=== PATIENT | male | born 1995 | race Caucasian/White ===

== ENCOUNTER 2019-05-30 13:18 | Emergency (ER) | payer OTHER ==
[~2019-05-30] VITALS: Ht 182.9 cm; Wt 100.0 kg
[2019-05-30 13:30] VITALS: Ht 182.9 cm; Wt 100.0 kg
[2019-05-30] MEDS ORDERED: morphine 2 MG INJ IV STA (14:55)
[2019-05-30] MEDS ORDERED: SOD CHLORIDE 0.9% 1,000 ML IV STA (14:55)
[2019-05-30] MEDS ORDERED: ONDANSETRON 4 MG INJ IV STA (14:55)
[2019-05-30] MEDS ORDERED: FAMOTIDINE 20 MG INJ IV STA (14:55)
[2019-05-30] MEDS ORDERED: CIPROFLOXACIN 500 MG TAB PO STA (14:55)
--- NOTE | 2019-05-30 14:58 | ERD ---
ER Documentation Chief Complaint Chief Complaint AP WITH DIARRHEA X 1 DAY HPI 23-year-old male, previously healthy, presents the emergency department, brought in by mother, complaining of 1 day with abdominal pain that started after eating [place] food. The pain is colicky, intermittent, 6/10, associated with nausea and greenish, watery diarrhea, approximately 6 episodes during the last 24 hours. The patient denies fever or chills, no history of previous episodes. The patient has been taking Tylenol with mild improvement of symptoms. ROS All systems reviewed and are negative except as per history of present illness. Medications Home Meds Active Scripts Acetaminophen* (Tylenol*) 325 Mg Tablet, 2 TAB PO Q6 PRN for PAIN AND OR ELEVATED TEMP, #20 TAB Prov:JUDIE LOUIS MD 05/30/19 Ranitidine Hcl* (Zantac*) 150 Mg Tablet, 150 MG PO BID PRN for EPIGASTRIC PAIN for 5 Days, #10 TAB Prov:JUDIE LOUIS MD 05/30/19 Ciprofloxacin Hcl* (Ciprofloxacin Hcl*) 250 Mg Tablet, 250 MG PO BID for 5 Days, #10 TAB Prov:JUDIE LOUIS MD 05/30/19 Allergies Allergies: Coded Allergies: No Known Allergy (Unverified , 05/30/19) PMhx/Soc Medical and Surgical Hx: pt denies Medical Hx History of Surgery: No Hx Alcohol Use: No Hx Substance Use: No Smoking Status: Current every day smoker FmHx Family History: No diabetes, No coronary disease Physical Exam Vitals Vital Signs Date Temp Pulse Resp B/P (MAP) Pulse Ox O2 O2 Flow FiO2 Time Delivery Rate 05/30/19 98.9 89 18 137/70 98 Room Air 16:57 (92) 05/30/19 97.4 99 18 147/89 99 13:30 (108) Physical Exam Patient alert, oriented, vital signs stable. HEAD: Normocephalic, atraumatic. EYES: PERRLA, EOMI, Sclera and conjunctiva appear normal. NOSE: Clear and patent nostrils. EARS: Canals clear, tympanic membranes WNL. MOUTH: normal lips and tongue, no oral lesions. THROAT: Normal oropharynx, no tonsillar exudates. NECK: Supple, No lymphadenopathy. Full ROM without pain or tenderness. HEART: RRR, no rubs, murmurs, clicks or gallops. LUNGS: Clear to auscultation. ABDOMEN: Soft, minimal tenderness with deep palpation without masses or hepatosplenomegaly. EXTREMITIES: No edema bilaterally. BACK: Full ROM, no deformity, normal back exam NEURO: Cranial nerves grossly intact, no motor or sensory deficit SKIN: No rashes, no petechia. Result Diagram: 05/30/19 1512 05/30/19 1511 Results 24 hrs Laboratory Tests Test 05/30/19 15:11 05/30/19 15:12 Sodium Level 141 mmol/L Potassium Level 3.6 mmol/L Chloride Level 101 mmol/L Carbon Dioxide Level 28 mmol/L Anion Gap 12 Blood Urea Nitrogen 7 mg/dl Creatinine 1.02 mg/dl Est Glomerular Filtrat Rate mL/min > 60 mL/min Glucose Level 112 mg/dl Calcium Level 10.3 mg/dl Total Bilirubin 0.7 mg/dl Direct Bilirubin 0.00 mg/dl Indirect Bilirubin 0.7 mg/dl Aspartate Amino Transf (AST/SGOT) 38 IU/L Alanine Aminotransferase (ALT/SGPT) 30 IU/L Alkaline Phosphatase 93 IU/L Total Protein 10.0 g/dl Albumin 5.0 g/dl Globulin 5.00 g/dl Albumin/Globulin Ratio 1.00 Lipase 56 U/L White Blood Count 20.5 10^3/ul Red Blood Count 5.92 10^6/ul Hemoglobin 17.5 g/dl Hematocrit 51.2 % Mean Corpuscular Volume 86.5 fl Mean Corpuscular Hemoglobin 29.6 pg Mean Corpuscular Hemoglobin Concent 34.2 g/dl Red Cell Distribution Width 12.3 % Platelet Count 228 10^3/UL Mean Platelet Volume 11.5 fl Immature Granulocytes % 0.600 % Neutrophils % 81.0 % Lymphocytes % 9.9 % Monocytes % 8.1 % Eosinophils % 0.1 % Basophils % 0.3 % Nucleated Red Blood Cells % 0.0 /100WBC Immature Granulocytes # 0.120 10^3/ul Neutrophils # 16.6 10^3/ul Lymphocytes # 2.0 10^3/ul Monocytes # 1.7 10^3/ul Eosinophils # 0.0 10^3/ul Basophils # 0.1 10^3/ul Nucleated Red Blood Cells # 0.0 10^3/ul Urine Color JG Urine Clarity SLIGHTLY CLOUDY Urine pH 6.0 Urine Specific [place] 1.031 Urine Ketones TRACE mg/dL Urine Nitrite NEGATIVE mg/dL Urine Bilirubin NEGATIVE mg/dL Urine Urobilinogen NEGATIVE mg/dL Urine Leukocyte Esterase NEGATIVE Ferny/ul Urine Microscopic RBC 3 /HPF Urine Microscopic WBC 6 /HPF Urine Mucus MANY /HPF Urine Hemoglobin NEGATIVE mg/dL Urine Glucose NEGATIVE mg/dL Urine Total Protein 2+ mg/dl Current Medications Medications Dose Sig/Shaan Start Time Status Last (Trade) Ordered Route PRN Stop Time Admin Dose Reason Admin Sodium 1,000 ml @ Q1H STAT 05/30/19 DC 05/30/19 Chloride 1,000 mls/hr IV 14:55 15:22 05/30/19 15:54 Morphine 2 mg ONCE STAT 05/30/19 DC 05/30/19 Sulfate IV 14:55 15:20 (morphine) 05/30/19 15:07 Ondansetron 4 mg ONCE STAT 05/30/19 DC 05/30/19 HCl (Zofran IV 14:55 15:20 Inj) 05/30/19 15:07 Famotidine 20 mg ONCE STAT 05/30/19 DC 05/30/19 (Pepcid Iv) IV 14:55 15:20 05/30/19 15:07 500 mg ONCE STAT 05/30/19 DC 05/30/19 Ciprofloxacin PO 14:55 16:04 (Cipro) 05/30/19 15:07 Patient: LINDSAY RODRIGUEZ : 1995 Age: 23 Sex: M MR #: [id number] DOS: 05/30/19 1455 Ordering MD: JUDIE LOUIS MD Location: [facility] Room/Bed: PROCEDURE: CT Abdomen and Pelvis without intravenous contrast. CLINICAL INDICATION: Abdominal Pain . TECHNIQUE: CT scan of the abdomen and pelvis without intravenous contrast was performed on a multi-detector high-resolution CT scanner. Coronal and sagittal reformatted images were obtained from the axial source images. DICOM images are available. CTDIvol 21.85 mGy, and DLP 1504.98 mGy.cm. One or more of the following dose reduction techniques were used: - Automated exposure control. - Adjustment of the mA and/or kV according to patient size. - Use of iterative reconstruction technique. COMPARISON: None available FINDINGS: In the absence of intravenous contrast, the study constitutes a limited assess ment of the solid organs, bowel and vessels. Lower thorax: Normal. Liver: Normal. Biliary: Gallbladder is normal. No intrahepatic or extrahepatic biliary dilatation. Pancreas: Normal. Spleen: Normal. Adrenal Glands: Normal. Urinary: Normal. Gastrointestinal: Stomach is unremarkable. There is low density mucosa of the ileal small bowel, cecum, ascending colon, and transverse colon. No evidence of appendicitis. No bowel wall thickening or acute inflammatory changes. No evidenc e of bowel obstruction. Lymph nodes: No enlarged abdominal or pelvic lymph nodes. Small mesenteric lymph nodes are noted and may be reactive. Vascular: Normal. Peritoneum/mesentery: No free fluid or free air. Reproductive organs: Normal. Musculoskeletal: No suspicious osseous lesions. IMPRESSION: No CT evidence of mass, lymphadenopathy, or acute inflammatory process. Low density mucosa of the ileal small bowel, ascending colon, and transverse colon may be sequela of chronic inflammatory changes. Correlate for inflammatory bowel disease. Procedures/MDM Vital signs stable. Differential diagnosis include but not limited to: UTI, colitis, gastroenteritis, kidney stones, irritable bowel syndrome, inflammatory bowel syndrome, malabsorption syndrome, cholelithiasis, food intolerance, medication side effect, pancreatitis, diverticulitis, bowel obstruction. Physical examination and clinical presentation consistent most likely with infectious gastroenteritis. During the ED course the patient remained stable, no new complaints, multiple examinations done at bedside, abdomen soft without peritoneal signs. The patient received treatment with IV fluids and IV medications presenting overall improvement of the symptoms. Results and clinical impression discussed with the patient who agrees with management. The patient is stable to be treated outpatient and will be discharged home; some side effects of prescribed medications (headache, rash, nausea, vomiting, diarrhea, drowsiness, habituation, bleeding, hypertension, interactions with other medications) were reviewed. The patient was informed that the evaluation in the emergency department has been done to rule out an acute emergency, therefore, chronic conditions like malignancy or other diseases have not been evaluated; therefore, the patient was instructed to follow up with the primary care provider in the next 48h. If symptoms persist, worsen or new symptoms develop, then patient should return to the ED immediately. Instructions explained and given directly by me to the patient with a cknowledgment and demonstrated understanding. Disclaimer: Inadvertent spelling and grammatical errors are likely due to EHR/dictation software use and do not reflect on the overall quality of patient care. Also, please note that the electronic time recorded on this note does not necessarily reflect the actual time of the patient encounter. Departure Diagnosis: Primary Impression: Abdominal pain Additional Impression: Food poisoning Condition: Stable Additional Instructions: Thank you very much for allowing us to participate in your care. Your health and safety is our top priority at [facility]. The evaluation in the emergency department has been done to rule out an acute emergency. Chronic, [id number] conditions may have not been evaluated; therefore, you need to follow up with a primary care provider in the next 48h. If symptoms persist, worsen or new symptoms develop, then patient should return to the ED immediately. Call your primary care doctor TOMORROW for an appointment during the next 2-4 days and bring all the information provided. Have prescriptions filled and follow precisely the directions on the label. If the symptoms get worse and your provider is unavailable, return to the Emergency Department immediately. JUDIE LOUIS MD May 30, 2019 14:58
[2019-05-30] MEDS ORDERED: RANI150T35 PO (16:36)
[2019-05-30] MEDS ORDERED: CIPR-193 PO (16:36)
[2019-05-30] MEDS ORDERED: ACET325T33 PO (16:36)
[2019-05-30 16:57] VITALS: BP 137/70; PULSE 89; RESP 18
== END 2019-05-30 17:02 | disposition home or self-care (01) ==
LOC: FTE 13:18
DX: T62.91XA Toxic effect of unspecified noxious substance eaten as food, accidental (unintentional), initial encounter (principal)
CPT/HCPCS: 36415; 74176; 80053; 81001; 83690; 85025; 96374; 96375; J2270; J2405; J7030; Z7502; Z7610